=== PATIENT | female | born 1970 | race Caucasian/White ===

== ENCOUNTER 2017-08-12 06:56 | Day surgery (SDC) | END 2017-08-12 11:40 | disposition home or self-care (01) ==

== ENCOUNTER 2018-02-15 23:50 | Emergency (ER) | payer BC ==
[~2018-02-15] VITALS: Wt 59.3 kg
[~2018-02-15 23:50] MED LIST: MULT-7 PO
[2018-02-16 00:02] VITALS: BP 128/90
[2018-02-16] MEDS ORDERED: IBUPROFEN 800 MG TAB PO ONE (00:30)
--- NOTE | 2018-02-16 00:46 | ERD ---
ER Documentation Chief Complaint Chief Complaint DYSURIA X'S 2 DAYS HPI This is a 48-year-old female who presents emergency department today complaining of some pain with urination that started earlier this morning. She states she also had some back pain. Denies any fevers or chills, hematuria. ROS All systems reviewed and are negative except as per history of present illness. Medications Home Meds Active Scripts Ibuprofen* (Motrin*) 600 Mg Tab, 600 MG PO Q6, #30 TAB Prov:YESENIA MARTE PA-C 02/16/18 Cephalexin* (Keflex*) 500 Mg Capsule, 500 MG PO BID for 7 Days, CAP Prov:YESENIA MARTE PA-C 02/16/18 Reported Medications Multivitamin (Daily Multiple Vitamin) 1 Each Tablet, 1 EACH PO DAILY, TAB 08/12/17 Allergies Allergies: Coded Allergies: No Known Allergy (Unverified , 08/12/17) PMhx/Soc Denies any past medical history Medical and Surgical Hx: pt denies Medical Hx History of Surgery: Yes (CSECTION X 1) Anesthesia Reaction: No Hx Neurological Disorder: No Hx Respiratory Disorders: No Hx Cardiac Disorders: No Hx Psychiatric Problems: No Hx Miscellaneous Medical Probl: No Hx Alcohol Use: No Hx Substance Use: No Hx Tobacco Use: No Smoking Status: Never smoker FmHx Family History: No diabetes, No coronary disease Physical Exam Vitals Vital Signs Date Temp Pulse Resp B/P (MAP) Pulse Ox O2 O2 Flow FiO2 Time Delivery Rate 02/16/18 97.2 75 18 128/90 99 00:02 (103) Physical Exam Const: No acute distress Head: Atraumatic Eyes: Normal Conjunctiva ENT: Normal External Ears, Nose and Mouth. Neck: Full range of motion. No meningismus. Resp: Clear to auscultation bilaterally Cardio: Regular rate and rhythm, no murmurs Abd: Soft, pelvic tenderness. No tenderness McBurney's., non distended. Normal bowel sounds Skin: No petechiae or rashes Back: lumbar spine midline and bilateral paraspinal tenderness. Full active range of motion. Ext: No cyanosis, or edema Neur: Awake and alert Psych: Normal Mood and Affect Results 24 hrs Laboratory Tests Test 02/16/18 00:28 Urine Color YELLOW Urine Clarity CLOUDY Urine pH 7.0 Urine Specific [place] 1.012 Urine Ketones NEGATIVE mg/dL Urine Nitrite NEGATIVE mg/dL Urine Bilirubin NEGATIVE mg/dL Urine Urobilinogen NEGATIVE mg/dL Urine Leukocyte Esterase 3+ [place]/ul Urine Microscopic RBC 11 /HPF Urine Microscopic WBC 31 /HPF Urine Squamous Epithelial Cells FEW /HPF Urine Amorphous Crystals FEW /HPF Urine Bacteria FEW /HPF Urine Hemoglobin 1+ mg/dL Urine Glucose NEGATIVE mg/dL Urine Total Protein NEGATIVE mg/dl Urine Test NEGATIVE Current Medications Medications Dose Sig/John Start Time Status Last (Trade) Ordered Route PRN Stop Time Admin Dose Reason Admin Ibuprofen 800 mg ONCE ONCE 02/16/18 DC 02/16/18 (Motrin) PO 00:30 00:41 02/16/18 00:31 Cephalexin 500 mg ONCE ONCE 02/16/18 DC (Keflex) PO 01:30 02/16/18 01:31 Procedures/MDM This is a 48-year-old female who presents emergency department complaining of some pain with urination that started this morning. Patient is afebrile and otherwise well-appearing. On physical exam she has some suprapubic tenderness. I did obtain a UA UA shows 3+ leukocyte esterase 11 microscopic red blood cells and 31 microscopic white blood cells. test is negative Patient was given Motrin here in the emergency department and first dose of Keflex. Patient is afebrile and otherwise well-appearing. No CVA tenderness and no vomiting. Low suspicion for sepsis, severe acute bacterial infection, pyelonephritis or nephrolithiasis. She had some mild suprapubic pain on physical exam however no tenderness McBurney's and I have low suspicion for acute surgical abdomen, ectopic , 2 ovarian abscess or ovarian torsion. Patient walking around the emergency department in no acute distress. Given a prescription for Keflex and Motrin for home. At this time the patient is stable for discharge and outpatient management. Patient should follow up with their PCP in the next 1-2 days. They may return to the emergency department sooner for any persistent or worsening of symptoms. Patient understood and agreed with the plan. Departure Diagnosis: Primary Impression: UTI (urinary tract infection) Urinary tract infection type: site unspecified Hematuria presence: with hematuria Qualified Codes: N39.0 - Urinary tract infection, site not specified; R31.9 - Hematuria, unspecified Condition: YESENIA Helton PA-C Feb 16, 2018 00:46
[2018-02-16] MEDS ORDERED: IBUP-1542 PO (01:28)
[2018-02-16] MEDS ORDERED: CEPH-443 PO (01:28)
[2018-02-16] MEDS ORDERED: CEPHALEXIN 500 MG CAP PO ONE (01:30)
[2018-02-16 02:06] VITALS: PULSE 78; RESP 20
== END 2018-02-16 02:00 | disposition home or self-care (01) ==
LOC: FTE 23:50
DX: N39.0 Urinary tract infection, site not specified (principal); R10.2 Pelvic and perineal pain
CPT/HCPCS: 81001; 84703; 99283; Z7610